=== PATIENT | male | born 2000 | race Two or more races ===

== ENCOUNTER 2024-03-16 17:34 | Emergency (ER) | payer OTHER ==
[~2024-03-16] VITALS: Ht 167.6 cm; Wt 88.5 kg
[2024-03-16 17:59] VITALS: BP 143/80; PULSE 68; RESP 18; O2SAT 98
[2024-03-16] MEDS ORDERED: CYCL-837 PO (21:10)
[2024-03-16] MEDS ORDERED: IBUP-1455 PO (21:10)
[2024-03-16] MEDS: KETOROLAC TROMETH 30 MG/ML 1ML VIAL IM ONE (21:30)
[2024-03-16] MEDS ORDERED: NEOMYCIN-BACITRACIN-POLYM 15GM TOP OINT TOP SCH (22:00)
== END 2024-03-16 21:41 | disposition home or self-care (01) ==
LOC: EDBD 17:34 → ER 17:34
DX: S50.812A Abrasion of left forearm, initial encounter (principal); S50.811A Abrasion of right forearm, initial encounter; S80.212A Abrasion, left knee, initial encounter; S80.211A Abrasion, right knee, initial encounter; M54.2 Cervicalgia; V89.2XXA Person injured in unspecified motor-vehicle accident, traffic, initial encounter; Y93.89 Activity, other specified; Y92.89 Other specified places as the place of occurrence of the external cause; Y99.8 Other external cause status
CPT/HCPCS: 96372; 99283; J1885

== ENCOUNTER 2025-03-21 15:35 | Emergency (ER) | payer OTHER ==
[~2025-03-21] VITALS: Ht 167.6 cm; Wt 93.2 kg
[~2025-03-21 15:35] MED LIST: CYCL-837 PO; IBUP-1455 PO
[2025-03-21] MEDS: ceFAZolin 2 GM/D5W50ml 50 ML IV ONE (15:59)
[2025-03-21] MEDS: MORPHINE SULFATE 4 MG/ML SYR/VIAL IV ONE (16:00)
--- NOTE | 2025-03-21 16:04 | ED.PDOC ---
Musculoskeletal HPI Comments 25 year old male L hand dominant presents to the ED with a chief compliant of LT hand injury onset today (03/21/25) around 15:30. Patient was at work, was going to clamp a large tube, LT hand was on tube, got crushed. Patient is currently experiencing LT hand pain, swelling, bleeding, fingers 1 through 4. Patient has 10/10 pain, has limited ROM due to pain. Pain is worst to the thumbs and 3rd digit. Denies head injury Denies LOC Denies numbness/tingling Denies fever chills nausea vomiting Last TDAP: unknown Time Seen by MD: 15:50 Primary Care Provider: DENIES Reviewed Notes: Nurses Notes, Medications, Allergies Allergies: Coded Allergies: NO KNOWN ALLERGIES (Unverified , 03/16/24) Home Meds Active Scripts Cyclobenzaprine Hcl (Cyclobenzaprine Hcl) 5 Mg Tab, 1 TAB PO TID, #20 TAB Prov:BRYANT THORNTON [facility] 03/16/24 Ibuprofen Micronized (Ibuprofen) 800 Mg Tab, 800 MG PO Q8HPRN PRN, #20 TAB Prov:BRAYNT THORNTON [facility] 03/16/24 Information Source: Patient Mode of Arrival: Ambulatory Location: Left Extremity Location: Finger 2, Finger 3, Finger 4, Hand, Thumb Timing: Minutes Prehospital treatment: None Severity: Moderate Able to Move Extremity: Yes Pain: Moderate Mechanism: Blunt Trauma Circumstances: Work Related Onset of Symptoms: After Trauma Symptoms: Swelling, Pain, Erythema DVT Risk Factors: NONE Last Tetanus: Unknown Associated signs and symptoms: Laceration, Subungual hematoma Past Medical History PAST MEDICAL HISTORY: Denies Surgical History: Denies all surgeries Family History Family History: Unknown Social History Smoker: Non-Smoker Alcohol: Denies ETOH Use Drugs: Denies Drug Use Lives In: Home All Other Systems: Reviewed and Negative (as per HPI) Physical Exam General Appearance: Moderate Distress, Normal HEENT: Normal ENT Inspection, Pharynx Normal, TMs Normal Neck: Full Range of Motion, Non-Tender, Normal, Normal Inspection Respiratory: Chest Non-Tender, Lungs Clear, No Accessory Muscle Use, No Respiratory Distress, Normal Breath Sounds Cardiovascular: No Murmur, No Gallop, Regular Rate/Rhythm Breast Exam: Deferred Gastrointestinal: No Organomegaly, Non Tender, No Pulsatile Mass, Normal Bowel Sounds, Soft Genitalia: Deferred Pelvic: Deferred Rectal: Deferred Extremities: No calf tenderness, Normal capillary refill, No pedal edema Musculoskeletal : Location: Left Extremity Location: Finger 2, Finger 3 (3 cm laceration to the dorsal aspect of the distal phalanx, subungual hematoma, surrounding echymosis. Neurovascular sensation intact ), Finger 4, Hand (significant swelling to LT phalanx 1-4, thumb with subungual hematoma noted. 3 cm laceration across DIP to 3rd digit with subungual hematoma, echymosis. Full ROM, unable to bend DIP with BIP due to pain), Thumb (subungual hematoma ) Apperance: Normal Neurologic: Alert, mail list librarian II-XII nml as Tested, No Motor Deficits, Normal Affect, Normal Mood, No Sensory Deficits Cerebellar Function: Normal Reflexes: Normal Skin: Dry, Normal Color, Warm Lymphatic: No Adenopathy Was a procedure done? Was a procedure done?: No Differential Diagnosis EXT Differential Diagnosis: Fracture, Sprain, Dislocation X-Ray, Labs, Meds, VS Vital Signs Date Time Temp Pulse Resp B/P (MAP) Pulse Ox O2 Delivery O2 Flow Rate FiO2 03/21/25 18:30 98.1 78 18 128/73 (91) 100 98.1 03/21/25 17:46 Room Air* 0 21 03/21/25 17:46 98.0 60 19 122/86 (98) 97 98.0 03/21/25 16:02 97.7 63 20 118/85 (96) 96 97.7 03/21/25 16:00 63 20 118/85 Lab Test 03/21/25 16:41 Range/Units White Blood Count 9.4 4.4-10.8 10^3/uL Red Blood Count 5.22 4.5-5.90 10^6/uL Hemoglobin 16.3 13.5-17.5 g/dL Hematocrit 46.3 41.0-53.0 % Mean Corpuscular Volume 88.7 80.0-100.0 fL Mean Corpuscular Hemoglobin 31.2 28.0-32.0 pg Mean Corpuscular Hemoglobin Concent 35.2 32.0-36.0 g/dL Red Cell Distribution Width 13.3 11.8-14.3 % Platelet Count 243 140-450 10^3/uL Mean Platelet Volume 7.4 6.9-10.8 fL Neutrophils (%) (Auto) 60.2 37.0-80.0 % Lymphocytes (%) (Auto) 30.7 10.0-50.0 % Monocytes (%) (Auto) 6.3 0.0-12.0 % Eosinophils (%) (Auto) 2.4 0.0-7.0 % Basophils (%) (Auto) 0.4 0.0-2.0 % Neutrophils # (Auto) 5.7 1.6-8.6 10 ^3/uL Lymphocytes # (Auto) 2.9 0.4-5.4 10 ^3/uL Monocytes # (Auto) 0.6 0-1.3 10 ^3/uL Eosinophils # (Auto) 0.2 0-0.8 10 ^3/uL Basophils # (Auto) 0 0-0.2 10 ^3/uL Nucleated Red Blood Cells 0.1 % Sodium Level 139 136-145 mmol/L Potassium Level 3.4 L 3.5-5.1 mmol/L Chloride Level 105 98-107 mmol/L Carbon Dioxide Level 23 20-31 mmol/L Anion Gap 11 5-15 Blood Urea Nitrogen 15 9-23 mg/dL Creatinine 1.08 0.700-1.30 mg/dL Glomerular Filtration Rate Calc 96 >90 mL/min BUN/Creatinine Ratio 13.9 10.0-20.0 Serum Glucose 105 74-106 mg/dL Calcium Level 9.8 8.7-10.4 mg/dL Current Medications Medications (Trade) Dose Ordered Sig/Rosy Route Start Time Stop Time Status Last Admin Cefazolin Sodium/ Dextrose 50 ml @ 50 mls/hr ONCE ONCE IV 03/21/25 16:00 03/21/25 16:59 DC 03/21/25 15:59 Morphine Sulfate 4 mg ONCE ONCE IV 03/21/25 16:00 03/21/25 16:01 DC 03/21/25 16:00 Diphtheria/ Tetanus/Acell Pertussis (Boostrix T-Dap) 0.5 ml ONCE ONCE IM 03/21/25 16:00 03/21/25 16:01 DC 03/21/25 16:11 Acetaminophen/ Hydrocodone Bitart ([place]ier 10/325MG Tab) 1 tab ONCE ONCE PO 03/21/25 18:15 03/21/25 18:16 DC 03/21/25 18:20 [facility] [address] [facility] [address] Ph: [phone] DIAGNOSTIC IMAGING Diagnostic Imaging Report : [id number] Signed PATIENT: CORBIN MAYNARD ACCT: [id number] UNIT: [id number] : 2000 LOC: ER ROOM / BED: / AGE / SEX: 25 / M ADM STATUS: REG ER SERVICE 1548 ORDERING PHYSICIAN: SCOTTIE FRANCO NP PROCEDURE(s): LHAN - L HAND 3V XRAY REASON: Crushed injury ORDER NUMBER(s): [id number], ACCESSION NUMBER(s): [id number] CLINICAL INDICATION: Crushed injury TECHNIQUE: XY L HAND 3V XRAY Comparison: None FINDINGS/IMPRESSION: : Comminuted fracture of the distal tuft of the left 3rd digit. Fracture of the distal tuft of the left thumb. Fracture of the distal middle phalanx 2nd digit. ATED BY: TEJAS CLEANING MD DICTATED DATE/TIME: 03/21/251643 SIGNED BY: TEJAS CLEANING MD SIGNED DATE/TIME: 03/21/251643 CC: open wound aprox Dr. Hills X-Ray, Labs, Meds, VS Comment 25 year old male presents to the ED with a chief compliant of LT hand injury onset today (03/21/25) around 15:30. Patient arrives alert and oriented, ABC's intact, afebrile, vital signs stable, saturating well in room air Peripheral IV insertion+ labs were ordered. CBC was ordered to exclude anemia, blood loss, or infection. BMP was ordered to exclude electrolyte abnormalities, renal failure, dehydration, hyperglycemia Diagnostic imaging ordered by me and results interpreted by radiology : XR L HAND 3V: IMPRESSION: : Comminuted fracture of the distal tuft of the left 3rd digit. Fracture of the distal tuft of the left thumb. Fracture of the distal middle phalanx 2nd digit. Patient was given: Tetanus update, Morphine 4 mg IV, Cefazolin 2 grams IV. Tolerated medications with no adverse reaction. Due to the open fracture, patient will require higher level of care Will benefit from ortho consultation and wash out Test results and diagnostic imaging interpreted. Patient agreed with plan Spoke with Dr. Garcia from [place], states patient is pending transfer and will return the call in 45 minutes. Advised to reach out to different admissions for possible transfer. Authorization code [id number]. He advised to call other hospitals to expedite the transfer. Spoke with Dr. Vega from [facility], accepted patient for transfer. Time of 1ST Reevaluation: 16:20 Reevaluation 1ST: Unchanged Patient Education/Counseling: Diagnosis, Treatment Family Education/Counseling: No Family Present Departure 1 Departure Time of Disposition: 17:24 Impression: Primary Impression: Injury of left hand Qualified Codes: S69.92XA - Unspecified injury of left wrist, hand and finger(s), initial encounter Additional Impressions: Fracture of phalanx of finger Qualified Codes: S62.663B - Nondisplaced fracture of distal phalanx of left middle finger, initial encounter for open fracture Fracture of distal phalanx of thumb Qualified Codes: S62.525B - Nondisplaced fracture of distal phalanx of left thumb, initial encounter for open fracture Fracture of middle phalanx of finger Qualified Codes: S62.623A - Displaced fracture of middle phalanx of left middle finger, initial encounter for closed fracture Disposition: 51 HOSPICE/MEDICAL FACILITY Condition: Serious Critical Care Note Critical Care Time?: No Stability Stability form required: No Heart Score Heart Score: Heart Score Response (Comments) Value History N/A 0 EKG N/A 0 Age N/A 0 Risk Factors N/A 0 Troponin N/A 0 Total 0 I personally scribed for SCOTTIE FRANCO IT APPLICATION SUPPORT ANALYST ([email or web address]) on 03/21/25 at 16:04. Electronically submitted by Crystal Alfonso ([email or web address]). I personally scribed for SCOTTIE FRANCO IT APPLICATION SUPPORT ANALYST ([email or web address]) on 03/21/25 at 16:17. Electronically submitted by Crystal Alfonso ([email or web address]). I personally scribed for SCOTTIE FRANCO IT APPLICATION SUPPORT ANALYST ([email or web address]) on 03/21/25 at 16:52. Electronically submitted by Crystal Alfonso ([email or web address]). I personally scribed for SCOTTIE FRANOC IT APPLICATION SUPPORT ANALYST ([email or web address]) on 03/21/25 at 16:54. Electronically submitted by Crystal Alfonso ([email or web address]). I personally scribed for SCOTTIE FRANCO IT APPLICATION SUPPORT ANALYST ([employer]) on 03/21/25 at 17:19. Electronically submitted by Crystal Alfonso ([email or web address]). I personally scribed for SCOTTIE FRANCO NP ([employer]) on 03/21/25 at 17:40. Electronically submitted by Crystal Alfonso ([email or web address]). I personally scribed for SCOTTIE FRANCO NP ([employer]) on 03/21/25 at 17:41. Electronically submitted by Crystal Alfonso ([email or web address]). SCOTTIE FRANCO NP Mar 21, 2025 16:04
[2025-03-21] MEDS: TETANUS-DIPTH-ACEL PERTUSSIS 0.5ML SYR Tdap IM ONE (16:11)
--- NOTE | 2025-03-21 16:46 | DVH ---
CLINICAL INDICATION: Crushed injury TECHNIQUE: XY L HAND 3V XRAY Comparison: None FINDINGS/IMPRESSION: : Comminuted fracture of the distal tuft of the left 3rd digit. Fracture of the distal tuft of the left thumb. Fracture of the distal middle phalanx 2nd digit.
[2025-03-21 17:07] LABS: Hematocrit 46.3 % (41.0-53.0); Hemoglobin 16.3 g/dL (13.5-17.5); Mean Corpuscular Hemoglobin 31.2 pg (28.0-32.0); Mean Corpuscular Volume 88.7 fL (80.0-100.0); Nucleated Red Blood Cells % 0.1 %
[2025-03-21 17:17] LABS: Chloride 105 mmol/L (98-107); Sodium 139 mmol/L (136-145)
[2025-03-21 17:18] LABS: Anion Gap 11 (5-15); Carbon Dioxide 23 mmol/L (20-31)
[2025-03-21 17:19] LABS: Calcium 9.8 mg/dL (8.7-10.4)
[2025-03-21 17:21] LABS: Potassium 3.4 mmol/L (3.5-5.1)
[2025-03-21 17:23] LABS: BUN/Creatinine Ratio 13.9 (10.0-20.0); Blood Urea Nitrogen 15 mg/dL (9-23); Glucose 105 mg/dL (74-106)
[2025-03-21] MEDS: HYDROcodone-ACET 10/325MG TAB PO ONE (18:20)
[2025-03-21 18:30] VITALS: BP 128/73; PULSE 78; RESP 18; TEMP 98.1; O2SAT 100
== END 2025-03-21 18:45 | disposition hospice, inpatient (51) ==
LOC: ER 15:41
DX: S62.623A Displaced fracture of middle phalanx of left middle finger, initial encounter for closed fracture (principal); W23.0XXA Caught, crushed, jammed, or pinched between moving objects, initial encounter; Y93.89 Activity, other specified; Y92.89 Other specified places as the place of occurrence of the external cause; Y99.8 Other external cause status
CPT/HCPCS: 36415; 73130; 80048; 85025; 90471; 90715; 96365; 96375; 99285; J0690; J2270